=== PATIENT | female | born 1950 | race Caucasian/White ===

== ENCOUNTER → 2016-07-23 09:58 | Outpatient (CLI) | payer MEDICAID ==
[2016-07-23 12:22] LABS: ERYTHROCYTE SEDIMENTATION RATE 22 mm/hr (0-30)
[2016-07-26 14:08] LABS: HEXAGONAL PHASE PHOS 4 sec (0-11); LUPUS - INTERPRETATION Comment: (()); LUPUS - THROMBIN TIME 15.3 sec (0.0-20.9); LUPUS - dRVVT 49.9 sec (0.0-44.0); PTT-LA 43.7 sec (0.0-40.6); PTT-LA INCUB MIX 41.7 sec (0.0-40.6); PTT-LA MIX 38.8 sec (0.0-40.6)
== END | disposition home or self-care (01) ==
LOC: D.LAB 09:58
PROVIDERS: Orthopaedic Surgery
DX: M25.50 Pain in unspecified joint (principal)

== ENCOUNTER → 2016-08-06 09:47 | Outpatient (CLI) | payer MEDICAID ==
[2016-08-07 10:19] LABS: ANA REFLEX - ANTICHROMATIN ABS <0.2 AI (0.0-0.9); ANA REFLEX - CENTROMERE B ABS <0.2 AI (0.0-0.9); ANA REFLEX - DBL STRANDED DNA <1 IU/mL (0-9); ANA REFLEX - DIRECT Positive (Negative); ANA REFLEX - JO-1 AB <0.2 AI (0.0-0.9); ANA REFLEX - RNP ANTIBODIES 2.2 AI (0.0-0.9); ANA REFLEX - SCL-70 <0.2 AI (0.0-0.9); ANA REFLEX - SJOGRENS AB SSA <0.2 AI (0.0-0.9); ANA REFLEX - SJOGRENS AB SSB <0.2 AI (0.0-0.9); ANA REFLEX - SMITH AB <0.2 AI (0.0-0.9)
== END | disposition home or self-care (01) ==
LOC: D.LAB 09:47
PROVIDERS: Orthopaedic Surgery
DX: M25.50 Pain in unspecified joint (principal)

== ENCOUNTER 2017-06-07 10:56 | Outpatient (CLI) | payer MEDICAID ==
[~2017-06-07] VITALS: Ht 162.6 cm; Wt 90.9 kg
--- NOTE | ~2017-06-07 | HEMODYNAMI ---
PATIENT:SARAY TRAORE MEDICAL RECORD: [id number] : 54 LOCATION:DRINA ADMISSION DATE: 06/07/17 Generatedon:06/07/201713:37 Patient name: SARAY TRAORE Patient #: [id number] SSN: DO B: 1950 Date of study: 06/07/2017 Page: Of Hemodynamic Procedure Report Patient Data Patient Demographics Procedure consent was obtained First Name: SARAY Gender: Female Last Name: LEÓN : 1950 [facility] Initial: HAILEY Age: 66 year(s) Patient #: [id number] Race: Unknown Additional ID: [id number] Contact details [address]: [address] [place] [address] State: [place] City: [place] Zip code: [address] Admission Admission Data Admission Date: 06/07/2017 Admission Time: 10:56 Lab Results Lab Result Date: 06/07/2017 Lab Result Time: 0:00 Biochemistry Name Units Result Min Max BUN mg/dl 21 --(----)-* 7 18 Creatinine mg/dl 0.7 --(*---)-- 0.6 1.3 CBC Name Units Result Min Max Hemoglobin g/dl 14 --(*---)-- 13.5 17.5 Procedure Procedure Types Cath Procedure Diagnostic Procedure [facility] w/Coronaries Miscellaneous Procedures Moderate Sedation up to 30 minutes Procedure Description Procedure Date Procedure Date: 06/07/2017 Procedure Start Time: 13:22 Procedure End Time: 13:34 Procedure Staff Name Function Asif Nguyen MD Performing Physician Melani Ornelas RT Monitor Marla Hinds RT Scrub Natanael Erickson RN Nurse Lashon Valadez RN Nurse Procedure Data Cath Procedure Fluoroscopy Diagnostic fluoroscopy Total fluoroscopy Time: 4.6 time: 4.6 min min Diagnostic fluoroscopy Total fluoroscopy dose: 796 dose: 796 mGy mGy Contrast Material Contrast Material Type Amount (ml) Isovue 300 33 Entry Location Entry Primary Successful Side Size Upsize Upsize Entry Closure Tyler ccessful Closure Location (Fr) 1 (Fr) 2 (Fr) Remarks Device Remarks Radial Right 6 Fr Mechanical artery Short Compression Estimated blood loss: 5 ml Diagnostic catheters Device Type Used For End Catheter Placement DIAGNOSTIC Shorter 110cm 5 Multi-vessel Fr catheter ([id number]) Angiography DIAGNOSTIC Pigtail 5Fr LV Angiography catheter ([id number]) Procedure Complications No complications Procedure Medications Medication Administration Route Dosage 0.9% NaCl I.V. ml/hr Oxygen NC 2 l/min Lidocaine 2% added to field 20 Heparin Flush Bag added to field 2 bags (1000units/500ml NS) Radial Cocktail added to field 1 syringe (Verapomil 2mg/Nitro 400mcg/Heparin 1500units) Versed I.V. 1 mg Fentanyl I.V. 50 mcg Fentanyl I.V. 50 mcg Versed I.V. 1 mg Hemodynamics Rest HGB: 14 (g/dl) Heart Rate: 56 (bpm) Snapshots Pre Cath Intra NCS Post Cath Vital Signs Time Heart Resp SPO2 etCO2 NIBP (mmHg) Rhythm Pain Sedation Rate (ipm) (%) (mmHg) Status Level (bpm) 13:04:05 55 14 100 34.3 169/80(131) NSR 0 (11) 10(A) , No pain 13:09:04 57 18 99 29.8 Measuring NSR 0 (11) 10(A) , No pain 13:09:31 54 15 100 31.3 166/83(110) NSR 0 (11) 10(A) , No pain 13:13:57 56 18 100 38 158/78(110) NSR 0 (11) 10(A) , No pain 13:18:15 52 16 100 37.3 146/82(130) NSR 0 (11) 9(A) , No pain 13:22:33 56 18 99 36.5 148/74(111) NSR 0 (11) 9(A) , No pain 13:26:37 53 15 97 33.6 122/80(95) NSR 0 (11) 9(A) , No pain 13:30:49 60 16 97 35 130/68(114) NSR 0 (11) 10(A) , No pain 13:34:56 56 9 99 37.2 131/72(117) NSR 0 (11) 10(A) , No pain Medications Time Medication Route Dose Verified Delivered Reason Notes Effectiveness by by 13:03:03 0.9% NaCl I.V. ml/hr Asif Oates used for [facility] Francisco Valadez RN procedure 13:03:25 Oxygen NC 2 l/min Asif Oates Per [facility] Francisco Valadez RN physician 13:03:36 Lidocaine 2% added 20ml Asif Gold for local to vial [facility] anesthetic field MD PINON 13:03:50 Heparin Flush added 2 bags Asif Gold used for Bag to [facility] procedure (1000units/500ml field MD PINON NS) 13:04:06 Radial Cocktail added 1 Asif Gold for (Verapomil to syringe [facility] vasodilation 2mg/Nitro field MD PINON 400mcg/Heparin 1500units) 13:14:53 Versed I.V. 1 mg Asif Oates for sedation [facility] Francisco Valadez RN, MD 13:15:01 Fentanyl I.V. 50 mcg Asif Oates for sedation [facility] Francisco Valadez RN, MD 13:20:01 Fentanyl I.V. 50 mcg Asif Oates for sedation [facility] Francisco Valadez RN, MD 13:20:08 Versed I.V. 1 mg Asif Oates for sedation [facility] Francisco Valadez RN, MD Procedure Log Time Note 12:48:20 Diagnostic Cath Status : Elective 12:48:50 Marla Hinds RT(R) sent for patient. Start room use. 12:48:51 Time tracking: Regular hours 12:48:55 Plan of Care:Hemodynamics will remain stable., Cardiac rhythm will remain stable., Comfort level will be maintained., Respiratory function will remain adequate., Patient/ family verbilizes understanding of procedure., Procedure tolerated without complication., Recovers from procedure without complications.. 12:57:13 Patient received from Pre/Post Procedure Room to [facility] 2 Alert and oriented. Tansferred to table in Supine position. 12:57:14 Warm blankets applied, and divina hugger turned on for patient comfort. 12:57:15 Correct patient and procedure confirmed by team. 12:57:16 Signed procedure consent form obtained from patient. 12:57:17 ECG and BP/O2 sat monitors applied to patient. 13:02:52 Vital chart was started 13:03:03 0.9% NaCl ml/hr I.V. was administered by Lashon Valadez RN; used for procedure; 13:03:25 Oxygen 2 l/min NC was administered by Lashon Valadez RN; Per physician; 13:03:36 Lidocaine 2% 20ml vial added to field was administered by Asif Nguyen MD; for local anesthetic; 13:03:50 Heparin Flush Bag (1000units/500ml NS) 2 bags added to field was administered by Asif Nguyen MD; used for procedure; 13:04:06 Radial Cocktail (Verapomil 2mg/Nitro 400mcg/Heparin 1500units) 1 syringe added to field was administered by Asif Nguyen MD; for vasodilation; 13:07:02 Baseline sample Acquired. 13:07:05 Rhythm: sinus rhythm 13:07:06 Full Disclosure recording started 13:07:11 H&P Date Dictated: 06/07/2017 H&P Addendum completed by physician on day of procedure. (MUST COMPLETE FOR ALL OUTPATIENTS), New H&P dictated by physician.. 13:07:13 Pre-procedure instructions explained to patient. 13:07:14 Pre-op teaching completed and patient verbalized understanding. 13:07:15 Family in waiting room. 13:07:17 Patient NPO since Midnight. 13:07:27 Is the patient allergic to Iodine/contrast media? No. 13:07:28 Was the patient premedicated? No 13:07:31 Is patient on blood thinner?No 13:07:32 Patient diabetic? Yes. 13:07:33 If diabetic: On Metformin? No 13:07:38 Previous problem with sedation/anesthesia? No ? 13:07:40 Snore? Yes 13:07:40 Sleep apnea? No 13:07:41 Deviated septum? No 13:07:42 Opens mouth fully? Yes 13:07:43 Sticks out tongue? Yes 13:07:48 Airway obstruction? No ? 13:07:56 Dentures? No loose teeth 13:08:01 Pre procedure: right dorsailis pedis pulse 2+ Normal; easily identifiable; not easily obliterated 13:08:03 Pre procedure: left dorsailis pedis pulse 2+ Normal; easily identifiable; not easily obliterated 13:08:05 Patient pain scale 0/10 ?. 13:08:12 IV patent on arrival in left hand with 0.9% NaCl at KVO. 13:08:53 Lab Result : BUN 21 mg/dl 13::53 Lab Result : Creatinine 0.7 mg/dl 13::53 Lab Result : Hemoglobin 14 g/dl 13:08:56 Lab results completed and on chart. 13:09:28 Right Radial & Right Groin area was prepped with chlora-prep and draped in sterile fashion 13::30 Alarms reviewed by R. N. 13::31 Sharps counted by scrub and verified by R.N. 13:09:32 Physician arrived 13::33 --------ALL STOP TIME OUT------ 13::33 Final Timeout: patient, procedure, and site verified with staff and physician. All members of the team are in agreement. 13:09:37 Right Radial & Right Groin site verified by team. 13:09:39 Physical assessment completed. ASA score P 2 - A patient with mild systemic disease as per Asif Nguyen MD. 13:09:44 Sedation plan: IV Moderate Sedation Medication:Versed, Fentanyl 13:10:04 Use device set Radial Dx 13:10:05 ACIST Syringe (67931) opened to sterile field. 13:10:06 Medline Cath Pack ([id number]) opened to sterile field. 13:10:08 Bag Decanter (2002S) opened to sterile field. 13:10:09 SHEATH 6FR Slender ([id number]) opened to sterile field. 13:10:10 DIAGNOSTIC WIRE .035 260cm J wire (431639) opened to sterile field. 13:10:11 ACIST Hand Control (88826) opened to sterile field. 13:10:12 ACIST Manifold (84947) opened to sterile field. 13:10:13 Tegaderm 4 x 4 (1626W) opened to sterile field. 13:10:14 MBrace Wrist Support ([id number]) opened to sterile field. 13:10:18 NEEDLE Cook 21G 4cm Radial (R20307) opened to sterile field. 13:10:22 TR BAND Standard ([id number]) opened to sterile field. 13:14:53 Versed 1 mg I.V. was administered by Lashon Valadez RN; for sedation; 13:15:01 Fentanyl 50 mcg I.V. was administered by Lashon Valadez RN; for sedation; 13:19:30 Zero performed for pressure channel P1 13:20:01 Fentanyl 50 mcg I.V. was administered by Lashon Valadez RN; for sedation; 13:20:08 Versed 1 mg I.V. was administered by Lashon Valadez RN; for sedation; 13:22:07 Procedure started. 13:22:26 Local anesthetic to right radial artery with Lidocaine 2% by Asif Nguyen MD.INITIAL ACCESS ONLY 13:23:08 A 6 Fr Short sheath was inserted into the Right Radial artery 13:24:03 A DIAGNOSTIC Shorter 110cm 5 Fr catheter (839108) was advanced over the wire and used for Multi-vessel Angiography. 13:27:05 LCA angiography performed. 13:27:09 Injector settings: Ml/sec: 3, Volume: 6, 13:28:27 RCA angiography performed. 13:28:29 Injector settings: Ml/sec: 3, Volume: 6, 13:30:22 A DIAGNOSTIC Pigtail 5Fr catheter ([id number]) was advanced over the wire and used for LV Angiography. 13:31:42 Catheter removed. 13:32:05 Sheath removed intact; hemostasis achieved with Mechanical Compression to the Right Radial artery. 13:32:07 Procedure ended.(Physican Out) 13:32:39 Fluoroscopy time 04.60 minutes. 13:32:45 Fluoroscopy dose: 796 mGy 13:32:45 Flurop Dose total: 796 13:32:51 Contrast amount:Isovue 300 33ml. 13:32:53 Sharps counted by scrub and verified by R.N. 13:33:33 TR band inflated with 10cc of air. 13:33:35 Insertion/operative site no bleeding no hematoma. 13:33:48 Post right radial artery:stable 13:33:50 Post Procedure Pulses reassessed and unchanged 13:33:54 Post procedure rhythm: unchanged. 13:33:56 Estimated blood loss: 5 ml 13:33:58 Post procedure instruction explained to patient.Patient verbalizes understanding. 13:33:58 Patient needs reinforcement of post procedure teaching. 13:34:10 Procedure type changed to Cath procedure, Diagnostic procedure, LHC, LHC w/Coronaries, Miscellaneous Procedures, Moderate Sedation up to 30 minutes 13:34:12 Procedure and supply charges have been captured, reviewed, submitted and are correct. 13:34:16 Procedure Complication : No complications 13:34:19 Vital chart was stopped 13:34:19 See physician's report for complete and final results. 13:34:23 Report given to Pre/Post Procedure Room. 13:34:26 Patient transfered to Pre/Post Procedure Room with Stretcher. 13:34:28 Procedure ended. 13:34:28 Full Disclosure recording stopped 13:34:31 End room use (Document Last) Device Usage Item Name Manufacture Quantity Catalog Hospital Part Current Minima l Lot# / Number Charge Number Stock Stock Serial# Code ACIST Acist 1 44734 [id number] 527417 220058 20 Syringe Medical (36294) Systems Inc Medline Cath Cardinal 1 [id number] 972023 78051 696394 5 Pack Health ([id number]) Bag Decanter Microtek 1 2001S 407775 63283 960978 5 (2001S) Medical Inc. SHEATH 6FR Terumo 1 [id number] 889526 905299 529644 40 Slender ([id number]) DIAGNOSTIC St Larry 1 810723 162229 832199 254073 30 WIRE .035 260cm J wire (644780) ACIST Hand Acist 1 21469 539208 860200 533728 5 Control Medical (32721) Systems Inc ACIST Acist 1 57897 894327 423657 155687 5 Manifold Medical (26675) Systems Inc Tegaderm 4 x 3M 1 1626W 522087 106432 373615 5 4 (1626W) MBrace Wrist Advanced 1 140-0250-00 057443 31323 414699 5 Support Vascular ([id number]) Dynamics NEEDLE [employer] Medical 1 I73265 314042 871373 094176 5 21G 4cm Radial (A34808) TR BAND Terumo 1 [id number] 856524 780267 487482 40 Standard ([id number]) DIAGNOSTIC Terumo 1 40-5013 397965 192363 426808 5 Shorter 110cm 5 Fr catheter (146679) DIAGNOSTIC Cardinal 1 [id number] 325252 415314 402921 5 Pigtail 5Fr Health catheter (525461X) Signature Audit Kosse Stage Time Signature Unsigned Intra-Procedure 06/07/2017 Melani Ornelas 1:37:35 PM RT(R) Signatures Monitor : Melani Ornelas RT Signature : Date : Time : [place] [id number] [facility] [place] [address]
[2017-06-07 12:03] VITALS: BP 139/73; Ht 162.6 cm; Wt 90.9 kg
[2017-06-07 12:17] LABS: BASOPHILS 0.5 % (0-2); EOSINOPHILS 3.5 % (0-7); HEMATOCRIT 40.6 % (36.0-48.0); IMMATURE GRANULOCYTES 0.3 % (0-5); LYMPHOCYTES 26.5 % (15-50); MCH 29.9 pg (26.0-34.0); MCHC 34.5 g/dL (31.0-37.0); MCV 86.8 fL (80.0-100.0); MEAN PLATELET VOLUME 10.2 fL (7.4-10.4); NEUTROPHILS 61.2 % (40-80); PLATELET COUNT 231 10x3/uL (130-400); RBC 4.68 10x6/uL (4.00-5.40); RDW 13.3 % (11.5-14.5); WBC 9.5 10x3/uL (4.8-10.8)
[2017-06-07 12:37] LABS: CALC OSMOLALITY 281 mosm/kg (275-300); CALCIUM 9.3 mg/dL (8.5-10.1); CARBON DIOXIDE 27.8 mmol/L (21.0-32.0); CHLORIDE - SERUM 103 mmol/L (98-107); CREATININE - SERUM 0.7 mg/dL (0.6-1.3); GLUCOSE 101 mg/dL (74-106); POTASSIUM - SERUM 3.6 mmol/L (3.5-5.1); SODIUM 140 mmol/L (136-145); UREA NITROGEN 21 mg/dL (7-18); eGFR NON AFRICAN AMERICAN 89 mL/min (90-120)
[2017-06-07] MEDS ORDERED: ZOCOR40 MG PO (12:39)
[2017-06-07] MEDS ORDERED: K-TAB10 MEQ PO (12:40)
[2017-06-07] MEDS ORDERED: COZAAR100 MG PO (12:40)
[2017-06-07] MEDS ORDERED: METOPROLOL TAR100 M1 PO (12:40)
[2017-06-07] MEDS ORDERED: ZOLOFT50 MG PO (12:41)
[2017-06-07] MEDS ORDERED: SYNTHROID112 MCG PO (12:41)
[2017-06-07] MEDS ORDERED: HYDROCHLOROTH12.5 M1 PO (12:41)
[2017-06-07] MEDS ORDERED: BUSPAR5 MG PO (12:42)
[2017-06-07] MEDS ORDERED: ZANAFLEX4 MG PO (12:42)
[2017-06-07] MEDS ORDERED: ULTRAM50 MG PO (12:42)
[2017-06-07] MEDS ORDERED: MAGNESIUM OXID250 MG PO (12:43)
[2017-06-07] MEDS ORDERED: VITAMIN D31000 UNIT PO (12:43)
--- NOTE | 2017-06-07 13:55 | NUR ---
1345 RECEIVED PT FROM MERCHANDISE CLERK. PT IS ALERT, RR EVEN AND UNLABORED ON ROOM AIR. TR BAND TO RIGHT WRIST IS CDI, AREA IS FREE FROM BLEEDING/HEMATOMA. FINGERS WARM, CAP REFILL IS BRISK, PT DENIES ANY N/V DEFICIT TO HAND. WRIST IMMOBILIZER IN PLACE, INSTRUCTED PT TO AVOID BENDING/ FLEXING WRIST AND VERBALIZES UNDERSTANDING. NSR WITH RATE OF 66. BP IS 130/69. SISTER AT BEDSIDE, CALL LIGHT IN REACH.
--- NOTE | 2017-06-07 13:57 | NUR ---
SANDWICH AND PO FLUIDS SERVED, PT DENIES ANY C/O. NO BLEEDING AT CATH SITE. SISTER AT BEDSIDE, CALL LIGHT IN REACH.
--- NOTE | 2017-06-07 14:26 | NUR ---
VSS WITH CHEST PAIN DENIED. SITTING WITH HOB UP 45 DEGREES TALKING TO FAMILY AT BEDSIDE NEEDS DENIED
--- NOTE | 2017-06-07 14:53 | NUR ---
TR BAND REMAINS TO R/WRIST CDI NO BLEEDING NO HEMATOMA NOTED. VSS WITH CHEST PAIN DENIED FAMILY AT BEDSIDE
--- NOTE | 2017-06-07 15:09 | NUR ---
4 CC AIR REMOVED FROM TR BAND WITH NO BLEEDING NO HEMATOMA NOTED
--- NOTE | 2017-06-07 15:17 | NUR ---
4 CC AIR REMOVED FROM TR BAND WITH NO BLEEDING NO HEMATOMA NOTED. PIV REMOVED WITH DRESSING APPLIED. PATIENT UP TO GET DRESSED FOR DISCHARGE HOME CHEST PAIN DENIED
--- NOTE | 2017-06-07 15:35 | NUR ---
TR BAND REMOVED WITH DRESSING APPLIED. NO BLEEDING NO HEMATOMA NOTED. CHEST PAIN IS DENIED. VERBAL AND WRITTEN DISCHARGE GONE OVER WITH PATIENT AND FAMILY. LEFT VIA WC TO PARKING FOR TRANSPORT HOME
--- NOTE | 2017-06-09 13:23 | OP ---
PATIENT NAME: SARAY TRAORE MEDICAL RECORD: [id number] :54 LOCATION:D.CAT ADMISSION DATE: SURGEON: WOLFGANG WYLIE MD DATE OF OPERATION: 06/07/2017 PROCEDURE: Left heart catheterization, selective coronary angiography, right radial approach. CATHETERS: [place] catheter. The procedure was tolerated and the patient returned to trevizo. Sheath removed. TR band was placed. FINDINGS: Left ventriculography in the 30-degree VAZ view not performed. CORONARY ANATOMY: 1. Left main: Left main is free of disease. 2. LAD is free of disease in the diagonal system. 3. Circumflex is free of disease in the marginal system. 4. Right coronary artery: Dominant artery, gives rise to PDA, free of disease. IMPRESSION: Normal LV systolic function via previous nuclear stress testing, echocardiographic study, normal coronary anatomy, and false positive nuclear stress testing. TRANSINT:[id number] Voice Confirmation ID: [id number] DOCUMENT ID: [id number] WOLFGANG WYLIE MD at 1323 CC: [id number] DICTATION DATE: 06/07/17 1339 MOTION PICTURES CARTOONIST: 06/07/17 1408 DEP CLI 06/07/17 [facility] [address] [place] [address]
--- NOTE | 2017-06-09 13:23 | HP ---
PATIENT: SARAY TRAORE MEDICAL RECORD: [id number] ACCOUNT: [id number] LOCATION:OPAL : 54 ADMISSION DATE: 06/07/17 HISTORY AND PHYSICAL EXAMINATION DATE OF SERVICE: 06/07/2017. HISTORY OF PRESENT ILLNESS: A 66-year-old female with a history of diabetes mellitus, hypertension, was initially seen in clinic with anginal symptomatology and underwent noninvasive stress test with Cardiolite stress testing, was found to have possible reversibility in the anterior leads, LV function was normal. She had been taken for outpatient angiography. PAST MEDICAL HISTORY: Includes: 1. History of hypertension. 2. Hyperlipidemia. 3. Diabetes mellitus. MEDICATIONS: Includes gabapentin 100 mg p.o. every day, hydrochlorothiazide 25 every day, Synthroid 112 mcg every day, losartan 100 every day, metoprolol 100 b.i.d., simvastatin 40 every day. PHYSICAL EXAMINATION: GENERAL: Well developed, well nourished female in no acute distress. NECK: No JVD or bruit. HEART: Regular. LUNGS: Lung tucker are clear. ABDOMEN: Soft, nontender. EXTREMITIES: Pulses 2+ with no edema. DIAGNOSTIC DATA: Cardiolite stress testing is abnormal as described above. PLAN: We will plan for diagnostic angiography, intervention based on the above. TRANSINT:[id number] Voice Confirmation ID: [id number] DOCUMENT ID: [id number] WOLFGANG WYLIE MD at 1323 CC: [id number] DICTATION DATE: 06/08/17 0758 AERODYNAMICS PROFESSOR: 06/08/17 0944 [facility] CLI 06/07/17 [place] [id number]
== END 2017-06-07 15:37 | disposition home or self-care (01) ==
LOC: D.CATH 10:56
PROVIDERS: Internal Medicine Interventional Cardiology
DX: R94.39 Abnormal result of other cardiovascular function study (principal); I10 Essential (primary) hypertension; E78.5 Hyperlipidemia, unspecified; E11.9 Type 2 diabetes mellitus without complications; Z01.812 Encounter for preprocedural laboratory examination; Z79.899 Other long term (current) drug therapy

== ENCOUNTER 2018-01-19 15:33 | Emergency (ER) | payer MEDICARE ==
[~2018-01-19] VITALS: Ht 162.6 cm; Wt 95.5 kg
[~2018-01-19 15:33] MED LIST: BUSPAR5 MG PO; COZAAR100 MG PO; HYDROCHLOROTH12.5 M1 PO; K-TAB10 MEQ PO; MAGNESIUM OXID250 MG PO; METOPROLOL TAR100 M1 PO; SYNTHROID112 MCG PO; ULTRAM50 MG PO; VITAMIN D31000 UNIT PO; ZANAFLEX4 MG PO; ZOCOR40 MG PO; ZOLOFT50 MG PO
[2018-01-19 15:50] VITALS: BP 170/85; Ht 162.6 cm; Wt 95.5 kg
[2018-01-19] MEDS ORDERED: VIBRAMYCIN 100100 MG PO (17:06)
== END 2018-01-19 17:13 | disposition home or self-care (01) ==
LOC: D.ER 15:33
DX: S20.469A Insect bite (nonvenomous) of unspecified back wall of thorax, initial encounter (principal); W57.XXXA Bitten or stung by nonvenomous insect and other nonvenomous arthropods, initial encounter; Y93.89 Activity, other specified; Y92.019 Unspecified place in single-family (private) house as the place of occurrence of the external cause; E11.9 Type 2 diabetes mellitus without complications; I10 Essential (primary) hypertension; Z85.828 Personal history of other malignant neoplasm of skin

== ENCOUNTER 2019-05-05 13:46 | Inpatient (IN) | payer MEDICARE ==
[~2019-05-05] VITALS: Ht 162.6 cm; Wt 99.8 kg
[~2019-05-05 13:46] MED LIST changes: +VIBRAMYCIN 100100 MG PO
[2019-05-05 15:30] VITALS: BP 185/95
--- NOTE | 2019-05-05 15:34 | NUR ---
C-COLLAR OKAYED TO REMOVE; REMOVED.
[2019-05-05 16:04] LABS: BASOPHILS 0.2 % (0-2); EOSINOPHILS 0.6 % (0-7); HEMATOCRIT 40.3 % (36.0-48.0); HEMOGLOBIN 13.6 g/dL (12-16); IMMATURE GRANULOCYTES 0.6 % (0-5); LYMPHOCYTES 10.7 % (15-50); MCH 30.2 pg (26.0-34.0); MCHC 33.7 g/dL (31.0-37.0); MCV 89.6 fL (80.0-100.0); MEAN PLATELET VOLUME 10.1 fL (7.4-10.4); MONOCYTES 6.3 % (2-11); NEUTROPHILS 81.6 % (40-80); PLATELET COUNT 227 10x3/uL (130-400); RDW 13.5 % (11.5-14.5); WBC 13.2 10x3/uL (4.8-10.8)
[2019-05-05 16:11] LABS: CALC OSMOLALITY 291 mosm/kg (275-300); CALCIUM 8.9 mg/dL (8.5-10.1); CARBON DIOXIDE 26.7 mmol/L (21.0-32.0); CHLORIDE - SERUM 107 mmol/L (98-107); CREATININE - SERUM 0.8 mg/dL (0.6-1.3); GLUCOSE 128 mg/dL (74-106); SODIUM 145 mmol/L (136-145); UREA NITROGEN 16 mg/dL (7-18); eGFR NON AFRICAN AMERICAN 76 mL/min (90-120)
[2019-05-05 16:17] LABS: ALBUMIN 3.5 g/dL (3.4-5.0); ALKALINE PHOSPHATASE 75 U/L (46-116); ALT (SGPT) 38 U/L (10-68); BILIRUBIN - TOTAL 0.45 mg/dL (0.2-1.3); PROTEIN - SERUM 7.2 g/dL (6.4-8.2)
--- NOTE | 2019-05-05 16:30 | NUR ---
PATIENT AWAKE AND ALERT; COLOR WNL FOR RACE; RESPIRATIONS EVEN AND UNLABORED; NO NEEDS NOTED; UPDATED ON PLAN OF CARE AND DELAYS IN CARE; WILL CONTINUE TO MONITOR.
--- NOTE | 2019-05-05 17:30 | NUR ---
PATIENT AWAKE AND ALERT; UPDATED ON PLAN OF CARE AND DELAYS IN CARE; WILL CONTINUE TO MONITOR.
[2019-05-05 18:29] VITALS: BP 144/92
--- NOTE | 2019-05-05 19:01 | NUR ---
PATIENT TO ROOM. ASSISTED TO BED X 2 ASSIST. ORIENTED TO ROOM AND CALL LIGHT. CALL LIGHT WITHIN REACH.
[2019-05-05 19:53] VITALS: BP 148/72
[2019-05-05] MEDS ORDERED: ZOLOFT50 MG PO (19:57)
[2019-05-05] MEDS ORDERED: ZANAFLEX4 MG PO (19:59)
[2019-05-05] MEDS ORDERED: CRESTOR20 MG PO (20:00)
[2019-05-05] MEDS ORDERED: ALEVE220 MG PO (20:02)
--- NOTE | 2019-05-05 20:05 | NUR ---
PT ALERT & ORIENTED. RATES BACK PAIN 10/10. INIATED STONE LATHE OPERATOR AND INSTRUCTED PT ON USE. REVIEWED HOME MEDS AND HISTORY. ASSESSMENT COMPLETE PER FLOW-SHEET. PT VOIDED ON BEDPAN. SENT SPECIMEN TO LAB. TELEMETRY ON PT. NO OTHER NEEDS. WILL CONTINUE TO MONITOR.
[2019-05-05 20:42] LABS: APPEARANCE CLOUDY (CLEAR); BILIRUBIN NEGATIVE (NEGATIVE); COLOR DK YELLOW (YELLOW); GLUCOSE NEGATIVE (NEGATIVE); KETONE NEGATIVE (NEGATIVE); NITRITE NEGATIVE (NEGATIVE); PROTEIN TRACE mg/dL (NEGATIVE); SPECIFIC GRAVITY 1.015 (1.005-1.020); UROBILINOGEN NORMAL (NORMAL)
[2019-05-05 20:43] LABS: BACTERIA FEW /hpf (NEGATIVE); RED CELLS - URINE 0-5 /hpf (0-5); WHITE CELLS - URINE 0-5 /hpf (NEGATIVE)
[2019-05-05 20:44] LABS: MUCUS <1+ /lpf (NONE SEEN)
[2019-05-05 22:58] VITALS: BP 148/72; BMI 37.8
[2019-05-06] VITALS: BP 134/69
[2019-05-06 04:00] VITALS: BP 141/66
[2019-05-06 07:10] LABS: BASOPHILS 0.2 % (0-2); EOSINOPHILS 1.3 % (0-7); HEMATOCRIT 36.6 % (36.0-48.0); HEMOGLOBIN 12.1 g/dL (12-16); IMMATURE GRANULOCYTES 0.2 % (0-5); LYMPHOCYTES 16.3 % (15-50); MCH 30.3 pg (26.0-34.0); MCHC 33.1 g/dL (31.0-37.0); MCV 91.5 fL (80.0-100.0); MEAN PLATELET VOLUME 9.9 fL (7.4-10.4); MONOCYTES 7.4 % (2-11); NEUTROPHILS 74.6 % (40-80); PLATELET COUNT 213 10x3/uL (130-400); RDW 14.1 % (11.5-14.5); WBC 10.2 10x3/uL (4.8-10.8)
[2019-05-06 07:34] LABS: ALBUMIN 3.3 g/dL (3.4-5.0); ALKALINE PHOSPHATASE 67 U/L (46-116); ALT (SGPT) 34 U/L (10-68); BILIRUBIN - TOTAL 0.35 mg/dL (0.2-1.3); CALC OSMOLALITY 291 mosm/kg (275-300); CALCIUM 7.7 mg/dL (8.5-10.1); CARBON DIOXIDE 29.3 mmol/L (21.0-32.0); CHLORIDE - SERUM 108 mmol/L (98-107); CREATININE - SERUM 0.8 mg/dL (0.6-1.3); GLUCOSE 136 mg/dL (74-106); POTASSIUM - SERUM 3.5 mmol/L (3.5-5.1); PROTEIN - SERUM 6.3 g/dL (6.4-8.2); SODIUM 145 mmol/L (136-145); UREA NITROGEN 15 mg/dL (7-18); eGFR NON AFRICAN AMERICAN 76 mL/min (90-120)
[2019-05-06 08:12] VITALS: BP 135/61
--- NOTE | 2019-05-06 09:22 | NUR ---
PT LYING IN BED ATTEMPTING TO EAT AND DRINK PT TO LAY FLAT ON BACK DUE TO PAIN AND ACCIDENT, ASSISTEED PT ON BEDPAN, NO OTHER NEEDS VOICED, CONTINUE WITH PLAN OF CARE
--- NOTE | 2019-05-06 11:01 | NUR ---
I have reviewed this patient and I concur with the Shift Assessment completed by the Licensed Practical Nurse today this shift.
--- NOTE | 2019-05-06 13:30 | NUR ---
RESITED PT IV TO LEFT HAND APPLIED ICE TO BACK PT STATES SHE FEELS MUCH BETTER CONTINUE WITH PLAN OF CARE
[2019-05-06 13:33] VITALS: BP 174/78
--- NOTE | 2019-05-06 15:08 | NUR ---
PT STATE SFELLS DIZZY AND SOB, O2 IS AT 97 HEART RATE IS AT 60 WILL CONTINUE TO MONITOR. NO WHEEZING HEARD NO SWELLING NO DIFFERENT MEDS, CHANGED SUPERINTENDENT MENAGERIE BEFORE INCIDENT OCCURED, PT ON SAME MEDICATION, WILL MONITOR CLOSELY
[2019-05-06 16:23] VITALS: BP 112/55
[2019-05-06 19:49] VITALS: BP 128/84
[2019-05-07] VITALS: BP 148/67
[2019-05-07 04:00] VITALS: BP 140/70
[2019-05-07 06:15] LABS: BASOPHILS 0.3 % (0-2); EOSINOPHILS 1.7 % (0-7); HEMATOCRIT 36.3 % (36.0-48.0); HEMOGLOBIN 11.7 g/dL (12-16); IMMATURE GRANULOCYTES 0.2 % (0-5); LYMPHOCYTES 11.1 % (15-50); MCHC 32.2 g/dL (31.0-37.0); MCV 93.1 fL (80.0-100.0); MEAN PLATELET VOLUME 10.7 fL (7.4-10.4); MONOCYTES 9.3 % (2-11); NEUTROPHILS 77.4 % (40-80); PLATELET COUNT 211 10x3/uL (130-400); RDW 14.5 % (11.5-14.5); WBC 11.9 10x3/uL (4.8-10.8)
[2019-05-07 06:54] LABS: ALBUMIN 3.4 g/dL (3.4-5.0); ANION GAP 12.9 mmol/L (8-16); BILIRUBIN - TOTAL 0.3 mg/dL (0.2-1.3); CALCIUM 8.2 mg/dL (8.5-10.1); CARBON DIOXIDE 29.8 mmol/L (21.0-32.0); CREATININE - SERUM 0.9 mg/dL (0.6-1.3); POTASSIUM - SERUM 3.7 mmol/L (3.5-5.1); PROTEIN - SERUM 6.5 g/dL (6.4-8.2)
--- NOTE | 2019-05-07 08:00 | NUR ---
PATIENT IN BED WITH IV INTACT. NO COMPLAINTS OR SIGNS OF DISTRESS. TLSO BRACE ON. CALL LIGHT WITHIN REACH.
[2019-05-07 08:09] VITALS: BP 123/62
--- NOTE | 2019-05-07 11:38 | NUR ---
PATIENT AMBULATED WITH PT 10 FT
[2019-05-07 12:28] VITALS: BP 121/60
[2019-05-07 16:54] VITALS: BP 116/45
--- NOTE | 2019-05-07 18:43 | NUR ---
PATIENT IN BED WITH IV INTACT. BACK BRACE ON. EATING DINNER AT THIS TIME. NO COMPLAINTS. CALL LIGHT WITHIN REACH.
[2019-05-07 20:47] VITALS: BP 124/60
[2019-05-08 00:58] VITALS: BP 120/60
--- NOTE | 2019-05-08 03:00 | NUR ---
PT INCONTINENT OF URINE. CLEANED PT AND CHANGED BED. OXYGEN SAT 79. PUT OXYGEN ON AT 2.5L TO GET SAT UP TO 88. MEAD RT TO ASSESS. JAMIE RT PUT PT ON 4L/NC, SAT IN 93% AND WILL REASSESS.
[2019-05-08 04:00] VITALS: BP 143/71
[2019-05-08 07:41] LABS: BASOPHILS 0.1 % (0-2); EOSINOPHILS 0.8 % (0-7); HEMATOCRIT 34.4 % (36.0-48.0); HEMOGLOBIN 11.3 g/dL (12-16); IMMATURE GRANULOCYTES 0.4 % (0-5); LYMPHOCYTES 6.7 % (15-50); MCH 29.8 pg (26.0-34.0); MCHC 32.8 g/dL (31.0-37.0); MONOCYTES 8.3 % (2-11); NEUTROPHILS 83.7 % (40-80); PLATELET COUNT 179 10x3/uL (130-400); RBC 3.79 10x6/uL (4.00-5.40)
[2019-05-08 07:52] LABS: ALBUMIN 3.2 g/dL (3.4-5.0); ALKALINE PHOSPHATASE 73 U/L (46-116); BILIRUBIN - TOTAL 0.57 mg/dL (0.2-1.3); CALC OSMOLALITY 287 mosm/kg (275-300); CALCIUM 8.3 mg/dL (8.5-10.1); CARBON DIOXIDE 29.7 mmol/L (21.0-32.0); CHLORIDE - SERUM 103 mmol/L (98-107); CREATININE - SERUM 0.7 mg/dL (0.6-1.3); GLUCOSE 144 mg/dL (74-106); PROTEIN - SERUM 6.9 g/dL (6.4-8.2); SODIUM 142 mmol/L (136-145); UREA NITROGEN 17 mg/dL (7-18); eGFR NON AFRICAN AMERICAN 89 mL/min (90-120)
[2019-05-08 07:53] LABS: ALT (SGPT) 50 U/L (10-68)
[2019-05-08 08:01] LABS: POTASSIUM - SERUM 2.8 mmol/L (3.5-5.1)
[2019-05-08 08:11] LABS: MCV 90.8 fL (80.0-100.0); WBC 15.8 10x3/uL (4.8-10.8)
--- NOTE | 2019-05-08 08:45 | NUR ---
ALERT AND ORIENTED. LUNGS CLEAR BILATERALLY IN ALL MONTIEL. HEART SOUNDS S1 AND S2 HEARD IN ALL MONTIEL. BOWEL SOUNDS ACTIVE X 4. SKIN INTACT WITHOUT REDNESS. IV TO RIGHT HAND PATENT WITHOUT REDNESS. DENIES NEEDS. BED LOW. CALL MCNEAL AND PERSONAL ITEMS IN REACH. WILL CONTINUE TO MONITOR.
[2019-05-08 08:51] VITALS: BP 156/82
[2019-05-08 12:30] VITALS: BP 154/83
[2019-05-08 12:48] LABS: ERYTHROCYTE SEDIMENTATION RATE 50 mm/hr (0-30)
--- NOTE | 2019-05-08 13:25 | NUR ---
RESTING IN BED. DENIES NEEDS. WILL CONTINUE TO MONITOR.
[2019-05-08 14:55] LABS: MAGNESIUM - SERUM 1.8 mg/dL (1.8-2.4)
[2019-05-08 16:21] VITALS: BP 170/78
--- NOTE | 2019-05-08 17:36 | NUR ---
RESTING IN BED. DENIES NEEDS. WILL CONTINUE TO MONITOR.
--- NOTE | 2019-05-08 17:51 | NUR ---
PATIENT'S ROLL PANNER DC ON SEP FROM PHARMACY. DR CANTOR SAID OK TO RENEW.
[2019-05-08 19:30] VITALS: BP 155/69
--- NOTE | 2019-05-08 22:00 | NUR ---
PT REPORTS INCONTINENT OF URINE EPISODE. REPORTS URGENCY. REFUSING BATH THAT SHE REQUESTED EARLIER. DENIES NEEDS AT THIS TIME.
--- NOTE | 2019-05-08 23:31 | NUR ---
A&O X 4. REPORTS SHE IS ABLE TO AMBULATE W/O DIFFICULTY, BUT REPORTS 10/10 PAIN CONSTANTLY. PT ALSO STATES SHE WOULD LIKE TO RECEIVE A BATH AT SOME POINT THIS SHIFT. DENIES FURTHER NEEDS, WILL CONTINUE TO MONITOR.
[2019-05-09 00:30] VITALS: BP 133/59
--- NOTE | 2019-05-09 03:37 | NUR ---
I have reviewed this patient and I concur with the Shift Assessment completed by the Licensed Practical Nurse today this shift.
[2019-05-09 04:30] VITALS: BP 140/62
[2019-05-09 08:14] LABS: ALBUMIN 3.1 g/dL (3.4-5.0); ALKALINE PHOSPHATASE 97 U/L (46-116); BILIRUBIN - TOTAL 0.71 mg/dL (0.2-1.3); CALCIUM 8.3 mg/dL (8.5-10.1); CARBON DIOXIDE 34.2 mmol/L (21.0-32.0); CHLORIDE - SERUM 102 mmol/L (98-107); CREATININE - SERUM 0.7 mg/dL (0.6-1.3); GLUCOSE 147 mg/dL (74-106); PROTEIN - SERUM 7.3 g/dL (6.4-8.2); SODIUM 142 mmol/L (136-145); eGFR NON AFRICAN AMERICAN 89 mL/min (90-120)
[2019-05-09 08:22] LABS: BASOPHILS 0.2 % (0-2); EOSINOPHILS 2.1 % (0-7); HEMATOCRIT 35.8 % (36.0-48.0); HEMOGLOBIN 11.6 g/dL (12-16); IMMATURE GRANULOCYTES 0.4 % (0-5); LYMPHOCYTES 7.1 % (15-50); MCH 29.6 pg (26.0-34.0); MCHC 32.4 g/dL (31.0-37.0); MCV 91.3 fL (80.0-100.0); MEAN PLATELET VOLUME 10.3 fL (7.4-10.4); MONOCYTES 8.2 % (2-11); RBC 3.92 10x6/uL (4.00-5.40); RDW 14.1 % (11.5-14.5); WBC 13.5 10x3/uL (4.8-10.8)
[2019-05-09 08:23] LABS: ALT (SGPT) 78 U/L (10-68); CALC OSMOLALITY 285 mosm/kg (275-300); UREA NITROGEN 12 mg/dL (7-18)
[2019-05-09 08:25] LABS: POTASSIUM - SERUM 2.8 mmol/L (3.5-5.1)
[2019-05-09 08:26] LABS: PLATELET COUNT 217 10x3/uL (130-400)
[2019-05-09 08:27] VITALS: BP 148/70
--- NOTE | 2019-05-09 09:00 | NUR ---
ASSESSMENT PER FLOW SHEET. PT IS WITHOUT DISTRESS.CALL LIGHT IN REACH.
--- NOTE | 2019-05-09 10:00 | NUR ---
IV PULLED OUT WITH CATH TIP INTACT FROM LEFT FOREARM. IV RESITED TO LEFT FOREARM USING ASEPTIC TECH,X1 STICK 22G.
[2019-05-09 12:18] VITALS: BP 139/70
[2019-05-09 16:03] LABS: MAGNESIUM - SERUM 1.8 mg/dL (1.8-2.4)
[2019-05-09 16:05] LABS: POTASSIUM - SERUM 2.7 mmol/L (3.5-5.1)
[2019-05-09 17:14] VITALS: BP 144/66
--- NOTE | 2019-05-09 19:30 | NUR ---
REMAINS WITHOUT CHANGE.CONT PLAN OF CARE
[2019-05-09 20:24] VITALS: BP 119/71
--- NOTE | 2019-05-09 21:15 | NUR ---
LYING IN BED. ALERT AND ORIENTED X4. RESP SHALLOW, NONLABORED. O2 @ 3L/NC. ENCOURAGED USE OF I.S AND INSTRUCTED. PT VERBALIZED UNDERSTANDING. RATES PAIN IN BACK 9. TRANSPORT AIRCREWMAN MORPHINE IN USE. MEDICATED WITH PERCOCET REQUESTED. NS @ 30 ML/HR INFUSING IN RT FOREARM WITHOUT DIFF. AMB WITH WALKER. GAIT IS UNSTEADY. TELEMETRY SHOWS SR WITH RATE OF 74. 1ST KCL RIDER STILL INFUSING DUE TO PT CRYING AND C/O BURNING AT IV SITE. SR ELEVATED X2. CL IN REACH.
--- NOTE | 2019-05-10 00:05 | NUR ---
2ND [facility] RIDER FINISHED INFUSING. WILL RECHECK WITH AM LABS. PT PLAYING ON CELL PHONE. NO DISTRESS. CL IN REACH.
[2019-05-10 01:07] VITALS: BP 160/73
[2019-05-10 05:09] VITALS: BP 156/82
[2019-05-10 06:55] LABS: BASOPHILS 0.3 % (0-2); EOSINOPHILS 3.6 % (0-7); HEMATOCRIT 34.4 % (36.0-48.0); HEMOGLOBIN 11.2 g/dL (12-16); IMMATURE GRANULOCYTES 0.6 % (0-5); MCH 29.9 pg (26.0-34.0); MCHC 32.6 g/dL (31.0-37.0); MEAN PLATELET VOLUME 10.4 fL (7.4-10.4); MONOCYTES 9.5 % (2-11); PLATELET COUNT 232 10x3/uL (130-400); RBC 3.74 10x6/uL (4.00-5.40); RDW 14.3 % (11.5-14.5); WBC 10.3 10x3/uL (4.8-10.8)
[2019-05-10 07:20] LABS: ALBUMIN 2.9 g/dL (3.4-5.0); ALKALINE PHOSPHATASE 93 U/L (46-116); ALT (SGPT) 71 U/L (10-68); BILIRUBIN - TOTAL 0.58 mg/dL (0.2-1.3); CALC OSMOLALITY 282 mosm/kg (275-300); CALCIUM 8.3 mg/dL (8.5-10.1); CARBON DIOXIDE 33.8 mmol/L (21.0-32.0); CHLORIDE - SERUM 101 mmol/L (98-107); CREATININE - SERUM 0.7 mg/dL (0.6-1.3); GLUCOSE 137 mg/dL (74-106); PROTEIN - SERUM 6.8 g/dL (6.4-8.2); SODIUM 141 mmol/L (136-145); UREA NITROGEN 12 mg/dL (7-18); eGFR NON AFRICAN AMERICAN 89 mL/min (90-120)
[2019-05-10 07:22] LABS: POTASSIUM - SERUM 3.2 mmol/L (3.5-5.1)
[2019-05-10 07:59] VITALS: BP 160/72
--- NOTE | 2019-05-10 08:17 | NUR ---
PATIENT RESTING IN BED WITH EYES CLOSED, NO DISTRESS, CL IN REACH
--- NOTE | 2019-05-10 09:14 | MORECARE ---
CASE MANAGEMENT DISCHARGE SUMMARY PATIENT: SARAY TRAORE HAILEY UNIT: [id number] ADM DATE: 05/05/19 AGE: 68 : 52 SEX: F ROOM/BED: D.2223 AUTHOR: SON,DOC PHYSICIAN: REFERRING PHYSICIAN: MARIE ROSADO DO DATE OF SERVICE: 05/10/19 Discharge Plan Patient Name: SARAY TRAORE Facility: [facility]:[place] : 1950 Planned Disposition: Home Anticipated Discharge Date: Discharge Date: Expected LOS: Initial Reviewer: [email or web address] Initial Review Date: 05/10/2019 Generated: 05/10/19 10:13 am Comments DCP- Discharge Planning Updated by [email or web address]: Babs Davis on 05/10/19 8:[address] Patient Name: SARAY TRAORE Admission Status: ER Accout number: [id number] Admission Date: 05-05-2019 : 1950 Admission Diagnosis: Attending: MARIE ROSADO Current LOS: 5 Anticipated DC Date: Planned Disposition: Home Primary Insurance: [employer] Discharge Planning Comments: CM met with patient to complete initial dc planning assessment. CM educated patient on the CM role and verbal consent given by patient to complete assessment. Patient lives at home alone. At discharge patient plans to return and feels this is a safe discharge. States her sister lives "10 houses away and will be staying with me vp [employer] when I go home." CM discussed availability of home health, rehab services, and medical equipment. Patient denied known discharge needs at this time. CM will continue to follow and will assist as needed with dc plans/needs. Director Recreation: Babs Davis DCPIA - Discharge Planning Initial Assessment Updated by [email or web address]: Babs Davis on 05/10/19 9:09 am * Is the patient Alert and Oriented? Yes * How many steps to enter\\exit or inside your home? 2/0 * PCP Dr. Malcolm * Pharmacy [facility] * Preadmission Environment Home Alone * ADLs Independent * Equipment Cane * Other Equipment States her brother in law has a walker that she can use * List name and contact numbers for known caregivers / representatives who currently or will assist patient after discharge: Cristal mendoza [phone] * Verbal permission to speak to the caregivers and representatives has been obtained from the patient. Yes * Community resources currently utilized None * Additional services required to return to the preadmission environment? No * Can the patient safely return to the preadmission environment? Yes * Has this patient been hospitalized within the prior 30 days at any hospital? No Patient Name: SARAY TRAORE Page [id number] at 0914 All edits/amendments must be made on the electronic document DICTATION DATE: 05/10/19912 FLAGGER: MAX 05/10/19912 RPT#: [id number] DC DATE: STATUS: ADM IN [facility] [address] [place] [address] END OF REPORT
[2019-05-10 11:37] VITALS: BP 158/78
--- NOTE | 2019-05-10 13:31 | NUR ---
PATIENT RESTING WITH EYES CLOSED, NO DISTRESS OR NEEDS VOICED. EDUCATED PATIENT THAT LOSS PREVENTION AUDITOR IS DISCONTINUED AND THAT PO MEDS WILL BE USED FOR PAIN CONTROL ALONG WITH PATCH
--- NOTE | 2019-05-10 14:14 | NUR ---
THIS NURSE RECEIVED THIS PATIENT AT 1400. PATIENT SITTING UP ON THE SIDE OF THE BED. NORMAL SALINE IV RUNNING A 100CC/HR. LEFT HAND PERIPHERAL LINE. SON AT BEDSIDE. DISCHARGE ORDERS WRITTEN
--- NOTE | 2019-05-10 14:32 | NUR ---
THIS NURSE RECEIVED THIS PATIENT AT 1400. PATIENT IS RESTING IN BED. ALERT/ORIENT. CALL LIGHT WITHIN REACH. VOICES NO NEEDS AT THIS TIME.
--- NOTE | 2019-05-10 16:38 | NUR ---
PRN PAIN MEDICATION GIVEN FOR LOWER BACK PAIN PER PATIENT REQUEST
[2019-05-10 17:01] VITALS: BP 166/87
[2019-05-10 20:00] VITALS: BP 191/93
--- NOTE | 2019-05-10 20:00 | NUR ---
ASSESSMENT PER FLOWSHEET. O2 OFF PT ON ROOM AIR NO DISTRESS. IV SALINE LOCK PATENT TO RT FOREARM. SR UP X2 CALL LIGHT WITHIN REACH. REQUESTING MORE PAIN MEDS INFORMED OF NEXT TIME DUE MED ORDERED Q6HRS.PT DOES HAVE A DURAGESIC PAIN PATCH ON. TELM. SHOWS SR WITH HR 83.
--- NOTE | 2019-05-10 22:30 | NUR ---
C/O PAIN BACK NORCO 10 TAB ONE PO GIVEN FOR PAIN CONTROL. DUWL=345 NO COVERAGE NEEDED
[2019-05-11 04:00] VITALS: BP 176/103
--- NOTE | 2019-05-11 05:46 | NUR ---
C/O BACK PAIN PERCOCET TAB ONE PO GIVEN FOR PAIN. EOKF=489. NO COVERAGE
[2019-05-11 06:07] LABS: BASOPHILS 0.5 % (0-2); EOSINOPHILS 3.2 % (0-7); HEMATOCRIT 39.1 % (36.0-48.0); HEMOGLOBIN 12.7 g/dL (12-16); IMMATURE GRANULOCYTES 0.9 % (0-5); LYMPHOCYTES 18.1 % (15-50); MCH 29.8 pg (26.0-34.0); MCHC 32.5 g/dL (31.0-37.0); MCV 91.8 fL (80.0-100.0); MEAN PLATELET VOLUME 10.2 fL (7.4-10.4); MONOCYTES 9.6 % (2-11); NEUTROPHILS 67.7 % (40-80); RBC 4.26 10x6/uL (4.00-5.40); RDW 14.1 % (11.5-14.5); WBC 10.5 10x3/uL (4.8-10.8)
[2019-05-11 06:12] LABS: PLATELET COUNT 297 10x3/uL (130-400)
[2019-05-11 06:36] LABS: ALBUMIN 3.2 g/dL (3.4-5.0); ALKALINE PHOSPHATASE 105 U/L (46-116); ALT (SGPT) 66 U/L (10-68); BILIRUBIN - TOTAL 0.54 mg/dL (0.2-1.3); CALC OSMOLALITY 280 mosm/kg (275-300); CALCIUM 8.5 mg/dL (8.5-10.1); CARBON DIOXIDE 33.2 mmol/L (21.0-32.0); CHLORIDE - SERUM 99 mmol/L (98-107); CREATININE - SERUM 0.8 mg/dL (0.6-1.3); GLUCOSE 115 mg/dL (74-106); POTASSIUM - SERUM 3.9 mmol/L (3.5-5.1); SODIUM 141 mmol/L (136-145); UREA NITROGEN 11 mg/dL (7-18); eGFR NON AFRICAN AMERICAN 76 mL/min (90-120)
--- NOTE | 2019-05-11 07:21 | NUR ---
ALERT AND ORIENTED. LUNGS CLEAR BILATERALLY. HEART SOUNDS S1 AND S2 HEARD IN ALL MONTIEL. BOWEL SOUNDS ACTIVE X 4. SKIN INTACT WITHOUT REDNESS. IV TO RFA PATENT WITHOUT REDNESS. TELEMETRY IN PLACE. DENIES NEEDS. BED LOW. CALL MCNEAL AND PERSONAL ITEMS IN REACH. WILL CONTINUE TO MONITOR.
--- NOTE | 2019-05-11 08:45 | NUR ---
PATIENT'S FENTANYL PATCH FOUND ON SIDE OF BED. REQUESTING NEW PATCH. DUNIA SPRAGUE IN ROOM WELL NURSE ELECTROCARDIOGRAPH TECHNICIAN KAYLEIGH DO GIVE 1615 PATCH NOW TO REPLACE OLD PATCH AND LEAVE NOTE. OLD PATCH REPLACED.
[2019-05-11 09:23] VITALS: BP 169/82
--- NOTE | 2019-05-11 09:44 | NUR ---
RESTING IN BED. DENIES NEEDS. WILL CONTINUE TO MONITOR.
--- NOTE | 2019-05-11 12:22 | NUR ---
PATIENT SLEEPING. WILL CONTINUE TO MONITOR.
[2019-05-11 12:27] VITALS: Ht 162.6 cm; Wt 99.8 kg
[2019-05-11 13:08] VITALS: BP 141/71
--- NOTE | 2019-05-11 15:40 | NUR ---
PATIENT SLEEPING. WILL CONTINUE TO MONITOR.
[2019-05-11 17:42] VITALS: BP 144/73
--- NOTE | 2019-05-11 17:48 | NUR ---
RESTING IN BED. DENIES NEEDS. WILL CONTINUE TO MONITOR.
[2019-05-11 20:00] VITALS: BP 135/73
--- NOTE | 2019-05-11 21:10 | NUR ---
PT AMBULATING AROUND NURSES STATION WITH WALKER. C/O PAIN 02/11. GAVE 1 TAB PERCOCET-10 AND SCHEDULED MEDS. COMPLETE ASSESSMENT PER FLOW-SHEET. NO OTHER NEEDS. WILL REASSESS AND CONTINUE TO MONITOR.
[2019-05-12] VITALS: BP 154/77
[2019-05-12 04:00] VITALS: BP 148/81
[2019-05-12 06:33] LABS: BASOPHILS 0.5 % (0-2); EOSINOPHILS 3.3 % (0-7); HEMATOCRIT 38.6 % (36.0-48.0); HEMOGLOBIN 12.8 g/dL (12-16); IMMATURE GRANULOCYTES 1.2 % (0-5); MCH 30.2 pg (26.0-34.0); MCHC 33.2 g/dL (31.0-37.0); MEAN PLATELET VOLUME 9.8 fL (7.4-10.4); MONOCYTES 10.1 % (2-11); NEUTROPHILS 61.9 % (40-80); PLATELET COUNT 291 10x3/uL (130-400); RBC 4.24 10x6/uL (4.00-5.40); RDW 14.2 % (11.5-14.5); WBC 11.1 10x3/uL (4.8-10.8)
[2019-05-12 06:38] LABS: CARBON DIOXIDE 32.1 mmol/L (21.0-32.0); CHLORIDE - SERUM 99 mmol/L (98-107); CREATININE - SERUM 0.8 mg/dL (0.6-1.3); GLUCOSE 121 mg/dL (74-106); SODIUM 137 mmol/L (136-145); eGFR NON AFRICAN AMERICAN 76 mL/min (90-120)
[2019-05-12 06:39] LABS: CALC OSMOLALITY 275 mosm/kg (275-300); POTASSIUM - SERUM 3.3 mmol/L (3.5-5.1); UREA NITROGEN 16 mg/dL (7-18)
--- NOTE | 2019-05-12 07:17 | MORECARE ---
CASE MANAGEMENT DISCHARGE SUMMARY PATIENT: SARAY TRAORE HAILEY UNIT: [id number] ADM DATE: 05/05/19 AGE: 68 : 52 SEX: F ROOM/BED: D.2223 AUTHOR: SON,DOC PHYSICIAN: REFERRING PHYSICIAN: MARIE ROSADO DO DATE OF SERVICE: 05/12/19 Discharge Plan Patient Name: SARAY TRAORE Facility: [facility]:[place] : 1950 Planned Disposition: Home Anticipated Discharge Date: Discharge Date: Expected LOS: Initial Reviewer: [email or web address] Initial Review Date: 05/10/2019 Generated: 05/12/19 8:16 am Comments DCP- Discharge Planning Updated by [id number]: Babs Susan on 05/12/19 6:[address] OXYGEN SATURATION DURING EXERTION WAS 90-94% ON ROOM AIR. SHE STATES SHE IS UNABLE TO MACIAS PAY FOR OXYGEN. SHE DOES NOT QUALIFY FOR HOME OXYGEN PER INSURANCE, SHE HAS NO CHRONIC DIAGNOSIS AND HER OXYGEN LEVEL IS ABOVE 88% ON ROOM AIR. DCP- Discharge Planning Updated by [id number]: Babs Davis on 05/10/19 8:[address] Patient Name: SARAY TRAORE Admission Status: ER Accout number: [id number] Admission Date: 05-05-2019 : 1950 Admission Diagnosis: Attending: MARIE ROSADO Current LOS: 5 Anticipated DC Date: Planned Disposition: Home Primary Insurance: [employer] Discharge Planning Comments: CM met with patient to complete initial dc planning assessment. CM educated patient on the CM role and verbal consent given by patient to complete assessment. Patient lives at home alone. At discharge patient plans to return and feels this is a safe discharge. States her sister lives "10 houses away and will be staying with me parts runner when I go home." CM discussed availability of home health, rehab services, and medical equipment. Patient denied known discharge needs at this time. CM will continue to follow and will assist as needed with dc plans/needs. Net Web Developer: Babs Davis DCPIA - Discharge Planning Initial Assessment Updated by [email or web address]: Babs Davis on 05/10/19 9:09 am * Is the patient Alert and Oriented? Yes * How many steps to enter\\exit or inside your home? 2/0 * PCP Dr. Malcolm * Pharmacy [facility] * Preadmission Environment Home Alone * ADLs Independent * Equipment Cane * Other Equipment States her brother in law has a walker that she can use * List name and contact numbers for known caregivers / representatives who currently or will assist patient after discharge: Cristal Upton - [facility] [phone] * Verbal permission to speak to the caregivers and representatives has been obtained from the patient. Yes * Community resources currently utilized None * Additional services required to return to the preadmission environment? No * Can the patient safely return to the preadmission environment? Yes * Has this patient been hospitalized within the prior 30 days at any hospital? No Last DP export: 05/10/19 8:14 a Patient Name: SARAY TRAORE Page [phone] at 0717 All edits/amendments must be made on the electronic document DICTATION DATE: 05/12/19715 MASTER COASTAL WATERS: MAX 05/12/19715 RPT#: [id number] DC DATE: STATUS: ADM IN [facility] [address] [place] [address] END OF REPORT
--- NOTE | 2019-05-12 07:20 | NUR ---
LYING IN BED,WITHOUT NEEDS.CALL LIGHT IN REACH.
[2019-05-12 08:06] VITALS: BP 138/52
--- NOTE | 2019-05-12 09:34 | NUR ---
HAS BEEN UP TO SHOWER THIS AM.WILL GIVE AM MEDS NOW.
[2019-05-12 12:44] VITALS: BP 142/74
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
[2019-05-12] MEDS ORDERED: ALBUTEROL SULF8.5 GM INH (14:48)
--- NOTE | 2019-05-12 16:07 | MORECARE ---
CASE MANAGEMENT DISCHARGE SUMMARY PATIENT: SARAY TRAORE HAILEY UNIT: [id number] ADM DATE: 05/05/19 AGE: 68 : 52 SEX: F ROOM/BED: D.2223 AUTHOR: ARTURO CLINE PHYSICIAN: REFERRING PHYSICIAN: MARIE ROSADO DO DATE OF SERVICE: 05/12/19 Discharge Plan Patient Name: SARAY TRAORE Facility: [facility]:[place] : 1950 Planned Disposition: Home Anticipated Discharge Date: Discharge Date: Expected LOS: Initial Reviewer: [email or web address] Initial Review Date: 05/10/2019 Generated: 05/12/19 5:06 pm Comments DCP- Discharge Planning Updated by [id number]: Babs Davis on 05/12/19 2:[address] Patient Name: SARAY TRAORE Encounter No: [id number] : 1950 Primary Insurance: [email or web address] Anticipated DC Date: Planned Disposition: Home External Planned Provider: : DCP follow-up note: Patient in agreement with discharge plan. Patient refuses home health. She states her sister is going to be staying with her. She states she has a walker at home and does not need any DME. States her sister will pick her up for discharge. No changes to plan. Case management will follow and assist as needed. Babs Davis DCP- Discharge Planning Updated by [email or web address]: Babs Dvais on 05/12/19 6:[address] OXYGEN SATURATION DURING EXERTION WAS 90-94% ON ROOM AIR. SHE STATES SHE IS UNABLE TO MACIAS PAY FOR OXYGEN. SHE DOES NOT QUALIFY FOR HOME OXYGEN PER INSURANCE, SHE HAS NO CHRONIC DIAGNOSIS AND HER OXYGEN LEVEL IS ABOVE 88% ON ROOM AIR. DCP- Discharge Planning Updated by [id number]: Babs Davis on 05/10/19 8:[address] Patient Name: SARAY TRAORE Admission Status: ER Accout number: [id number] Admission Date: 05-05-2019 : 1950 Admission Diagnosis: Attending: MARIE ROSADO Current LOS: 5 Anticipated DC Date: Planned Disposition: Home Primary Insurance: [email or web address] Discharge Planning Comments: CM met with patient to complete initial dc planning assessment. CM educated patient on the CM role and verbal consent given by patient to complete assessment. Patient lives at home alone. At discharge patient plans to return and feels this is a safe discharge. States her sister lives "10 houses away and will be staying with me partner management consultant when I go home." CM discussed availability of home health, rehab services, and medical equipment. Patient denied known discharge needs at this time. CM will continue to follow and will assist as needed with dc plans/needs. Superintendent Horticulture: Babs Bansalcarlota DCPIA - Discharge Planning Initial Assessment Updated by [email or web address]: Babs Susan on 05/10/19 9:09 am * Is the patient Alert and Oriented? Yes * How many steps to enter\\exit or inside your home? 2/0 * PCP Dr. Malcolm * Pharmacy [facility] * Preadmission Environment Home Alone * ADLs Independent * Equipment Cane * Other Equipment States her brother in law has a walker that she can use * List name and contact numbers for known caregivers / representatives who currently or will assist patient after discharge: Cristal Upton [facility] [phone] * Verbal permission to speak to the caregivers and representatives has been obtained from the patient. Yes * Community resources currently utilized None * Additional services required to return to the preadmission environment? No * Can the patient safely return to the preadmission environment? Yes * Has this patient been hospitalized within the prior 30 days at any hospital? No Coverage Notice Reviewer: [email or web address] - Babs Bansalcarlota Notice Issued Date-Time: 05/12/2019 15:57 Notice Type: IM Discharge Notice Notice Delivered To: Patient Relationship to Patient: Self Residential Finish Carpenter Name: Delivery Method: HAND - Hand Delivered Mone Days: Prior Verbal Notification: Recipient Understood Notice: Yes Recipient Signature: Yes Med Rec Note Co-signed by Attending: Coverage Notice Comment: IMM explained, signed, given, copy placed in MR Last DP export: 05/12/19 6:17 a Patient Name: SARAY TRAORE Page 43465 at 1607 All edits/amendments must be made on the electronic document DICTATION DATE: 05/12/191605 GIS SOFTWARE DEVELOPER: MAX 05/12/191605 RPT#: [id number] DC DATE: STATUS: ADM IN [facility] [address] [place] [address] END OF REPORT
[2019-05-12 16:44] VITALS: BP 131/64
[2019-05-12] MEDS ORDERED: PERCOCET 5-3251 TAB PO (17:24)
--- NOTE | 2019-05-12 18:31 | NUR ---
iv dcd with cath tip intact.discharge instructions,states understanding. pt is waiting on ride. she states it will be an hour or so.
--- NOTE | 2019-05-12 19:14 | NUR ---
RIDE HERE FOR TRANSPORT HOME.LEFT UNIT VIA WHEELCHAIR.
--- NOTE | 2019-05-13 15:48 | MORECARE ---
CASE MANAGEMENT DISCHARGE SUMMARY PATIENT: SARAY TRAORE HAILEY UNIT: [id number] ADM DATE: 05/05/19 AGE: 68 : 54 SEX: F ROOM/BED: D.2223 AUTHOR: ARTURO CLINE PHYSICIAN: REFERRING PHYSICIAN: MARIE ROSADO DO DATE OF SERVICE: 05/13/19 Discharge Plan Patient Name: SARAY TRAORE Facility: [facility]:[place] : 1950 Planned Disposition: Home Anticipated Discharge Date: Discharge Date: 05/12/2019 Expected LOS: Initial Reviewer: [email or web address] Initial Review Date: 05/10/2019 Generated: 05/13/19 4:47 pm Comments DCP- Discharge Planning Updated by [email or web address]: Babs Davis on 05/12/19 2:[address] Patient Name: SARAY TRAORE Encounter No: [id number] : 1950 Primary Insurance: [employer] Anticipated DC Date: Planned Disposition: Home External Planned Provider: : DCP follow-up note: Patient in agreement with discharge plan. Patient refuses home health. She states her sister is going to be staying with her. She states she has a walker at home and does not need any DME. States her sister will pick her up for discharge. No changes to plan. Case management will follow and assist as needed. Babs Davis DCP- Discharge Planning Updated by [id number]: Babs Davis on 05/12/19 6:[address] OXYGEN SATURATION DURING EXERTION WAS 90-94% ON ROOM AIR. SHE STATES SHE IS UNABLE TO MACIAS PAY FOR OXYGEN. SHE DOES NOT QUALIFY FOR HOME OXYGEN PER INSURANCE, SHE HAS NO CHRONIC DIAGNOSIS AND HER OXYGEN LEVEL IS ABOVE 88% ON ROOM AIR. DCP- Discharge Planning Updated by [email or web address]: Babs Davis on 05/10/19 8:[address] Patient Name: SARAY TRAORE Admission Status: ER Accout number: [id number] Admission Date: 05-05-2019 : 1950 Admission Diagnosis: Attending: MARIE ROSADO Current LOS: 5 Anticipated DC Date: Planned Disposition: Home Primary Insurance: [employer] Discharge Planning Comments: CM met with patient to complete initial dc planning assessment. CM educated patient on the CM role and verbal consent given by patient to complete assessment. Patient lives at home alone. At discharge patient plans to return and feels this is a safe discharge. States her sister lives "10 houses away and will be staying with me registered phlebotomist part time when I go home." CM discussed availability of home health, rehab services, and medical equipment. Patient denied known discharge needs at this time. CM will continue to follow and will assist as needed with dc plans/needs. Accounting Manager Cpa: Babs Davis DCPIA - Discharge Planning Initial Assessment Updated by [id number]: Babs Davis on 05/10/19 9:09 am * Is the patient Alert and Oriented? Yes * How many steps to enter\\exit or inside your home? 2/0 * PCP Dr. Malcolm * [facility] * Preadmission Environment Home Alone * ADLs Independent * Equipment Cane * Other Equipment States her brother in law has a walker that she can use * List name and contact numbers for known caregivers / representatives who currently or will assist patient after discharge: Cristal Upton [facility] [phone] * Verbal permission to speak to the caregivers and representatives has been obtained from the patient. Yes * Community resources currently utilized None * Additional services required to return to the preadmission environment? No * Can the patient safely return to the preadmission environment? Yes * Has this patient been hospitalized within the prior 30 days at any hospital? No Coverage Notice Reviewer: [id number] - Babs Davis Notice Issued Date-Time: 05/12/2019 15:57 Notice Type: IM Discharge Notice Notice Delivered To: Patient Relationship to Patient: Self Community Health Nurse Name: Delivery Method: HAND - Hand Delivered Mone Days: Prior Verbal Notification: Recipient Understood Notice: Yes Recipient Signature: Yes Med Rec Note Co-signed by Attending: Coverage Notice Comment: IMM explained, signed, given, copy placed in MR Last DP export: 05/12/19 3:07 p Patient Name: SARAY TRAORE Page 45538 at 1548 All edits/amendments must be made on the electronic document DICTATION DATE: 05/13/191546 APPAREL DESIGNER: MAX 05/13/191546 RPT#: [id number] DC DATE:05/12/19 STATUS: DIS IN [facility] [address] [facility] [address] END OF REPORT
== END 2019-05-12 19:15 | disposition home or self-care (01) | DRG 551 ==
LOC: D.ER 13:46 → D.MS 17:12
PROVIDERS: Family Medicine; Internal Medicine Nephrology; ADMIT Family Medicine; ATTEND Family Medicine
DX: S32.058A Other fracture of fifth lumbar vertebra, initial encounter for closed fracture (principal); J96.01 Acute respiratory failure with hypoxia; J81.1 Chronic pulmonary edema; V89.2XXA Person injured in unspecified motor-vehicle accident, traffic, initial encounter; Y92.410 Unspecified street and highway as the place of occurrence of the external cause; M48.061 Spinal stenosis, lumbar region without neurogenic claudication; H26.9 Unspecified cataract; E11.65 Type 2 diabetes mellitus with hyperglycemia; E03.9 Hypothyroidism, unspecified; I10 Essential (primary) hypertension; M19.90 Unspecified osteoarthritis, unspecified site; F41.9 Anxiety disorder, unspecified; Z85.828 Personal history of other malignant neoplasm of skin; E87.6 Hypokalemia; M24.074 Loose body in right toe joint(s)

== ENCOUNTER → 2020-12-11 08:56 | Outpatient (CLI) | payer MEDICARE ==
[2019-05-11 12:27] VITALS: BMI 37.7
[~2020-12-11 08:56] MED LIST changes: +ALBUTEROL SULF8.5 GM INH; +ALEVE220 MG PO; +CRESTOR20 MG PO; +PERCOCET 5-3251 TAB PO
--- NOTE | 2020-12-13 09:25 | EC ---
PATIENT:SARAY TRAORE DATE OF SERVICE: 12/11/20 SEX: F MEDICAL RECORD: [id number] DATE OF : [birth year] [facility] AGE OF PATIENT: 70 ADMISSION DATE: 12/11/20 REFERRING PHYSICIAN: INTERPRETING PHYSICIAN: WOLFGANG WYLIE MD ECHOCARDIOGRAM REPORT ECHO CHARGES 4 ECHO COMPLETE Date: 12/11/20 CLINICAL DIAGNOSIS: PALPITATIONS/HEART MURMUR/ANGINA ECHOCARDIOGRAPHIC MEASUREMENTS (adult normal given) AC root (d.<3.7cm) 3.5 cm LV Septum d (<1.2 cm> 1.4 cm Valve Excursion 1.6 cm LV Septum (systole) 1.7 cm Left Atria (s.<4.0cm> 4.2 cm LVPW d(<1.2cm) 1.6 cm RV (d.<2.3cm) 3.8 cm LVPW (sytole) 1.9 cm LV diastole(<5.6CM) 4.3 cm MV E-F(>70mm/sec) cm LV systole 2.7 cm LVOT Diameter 1.5 cm MV exc.(>10mm) 2.0 cm Est.ejection fraction (50-75%) % DOPPLER: LVIT cm/sec A 71.0 cm/sec E 59.0 cm/sec LA cm/sec RVSP 31 mmHg LVOT 97 cm/sec AOP1/2T m/s Asc. Ao 165 cm/sec RVOT 88 cm/sec RA cm/sec PA 135 cm/sec AV Gradient Peak 10.91mmHg AV Mean 6.06 mmHg AV Area 1.8 cm MV Gradient Peak 3.51 mmHg MV Mean 1.56 mmHg MV Area cm COMMENTS: Education Reviewer: 2 GERARDO SWANN Lacquer Mixer: 3 Dr. Nguyen TAPE# PACS Pericardial Effusion N DATE OF SERVICE: Adequate 2D, color flow imaging, spectral Doppler, and M-Mode. FINDINGS: Mild LVH. LV internal dimensions are normal. Wall motion is normal. EF is greater than or equal to 55%. Aortic valve is tricuspid. No evidence of stenosis by Doppler interrogation. Left atrium is mildly dilated at 4.2 cm. Mitral valve shows no prolapse. Trace MR. Right side is grossly normal. Mild TR. ECHOCARDIOGRAM REPORT [id number] SARAY TRAORE AHILEY TRANSINT:[id number] Voice Confirmation ID: [id number] DOCUMENT ID: [id number] WOLFGANG WYLIE MD at 0925 CC: [id number] DICTATION DATE: 12/12/201714 SKULL GRINDER: 12/12/20 1829 DEP CLI 12/11/20 [place] [id number] [place] [id number]
== END | disposition home or self-care (01) ==
LOC: D.HCCARDIO 08:56 → D.HCCECHO 10:00
PROVIDERS: ATTEND Internal Medicine Cardiovascular Disease
DX: I20.9 Angina pectoris, unspecified (principal)

== ENCOUNTER 2021-01-02 11:26 | Day surgery (SDC) | payer MEDICARE ==
[~2021-01-02] VITALS: Ht 162.6 cm; Wt 93.6 kg
--- NOTE | ~2021-01-02 | HEMODYNAMI ---
PATIENT:SARAY TRAORE MEDICAL RECORD: [id number] : 54 LOCATION:[facility] ADMISSION DATE: 01/02/21 Generatedon:114:37 Patient name: SARAY TRAORE Patient #: [id number] SSN: DO B: 1950 Date of study: 01/02/2021 Page: Of Hemodynamic Procedure Report Patient Data Patient Demographics Procedure consent was obtained First Name: SARAY Gender: Female Last Name: LEÓN : 1950 [facility] Initial: HAILEY Age: 70 year(s) Patient #: [id number] Race: Unknown Additional ID: [id number] Contact details [address]: [address] [place] [address] State: [place] City: [place] Zip code: [address] Admission Admission Data Admission Date: 01/02/2021 Admission Time: 11:26 Procedure Procedure Types Cath Procedure Diagnostic Procedure LHC LHC w/Coronaries Sedation Charges Moderate Sedation 10-24 minutes Procedure Description Procedure Date Procedure Date: 01/02/2021 Procedure Start Time: 14:20 Procedure End Time: 14:33 Procedure Staff Name Function Asif Grimm MD Performing Physician Nj Caballero RT Monitor Nisha Jeffers RT Scrub Natanael Erickson RN Nurse Procedure Data Cath Procedure Fluoroscopy Diagnostic fluoroscopy Total fluoroscopy Time: 1.5 time: 1.5 min min Diagnostic fluoroscopy Total fluoroscopy dose: 497 dose: 497 mGy mGy Contrast Material Contrast Material Type Amount (ml) Isovue 300 68 Entry Location Entry Primary Successful Side Size Upsize Upsize Entry Closure Succes sful Closure Location (Fr) 1 (Fr) 2 (Fr) Remarks Device Remarks Femoral Right 5 Fr Exoseal artery Estimated blood loss: 5 ml Diagnostic catheters Device Type Used For End Catheter Placement MULTIPACK JL 4.0 5Fr Left Coronary catheter Angiography MULTIPACK 3DRC 5Fr Right Coronary catheter Angiography MULTIPACK Pigtail 5 Fr LV Angiography catheter Procedure Complications No complications Procedure Medications Medication Administration Route Dosage Oxygen etCO2 Nasal cannula 2 l/min Lidocaine 2% added to field 20 Heparin Flush Bag added to field 2 bags (1000units/500ml NS) 0.9% NaCl I.V. 100 ml/hr Versed I.V. 1.5 mg Fentanyl I.V. 50 mcg 0.9% NaCl I.V. bolus 250 ml Versed I.V. 1 mg Fentanyl I.V. 50 mcg Hemodynamics Rest Heart Rate: 71 (bpm) Pressure Samples Time Site Value (mmHg) Purpose Heart Use Rate(bpm) 14:27 LV 57/8,-4 Snapshot 59 14:27 LV 103/9,16 Snapshot 59 Gradients Valve Time Site Site Mean SEP/DFP Peak To Heart Use 1 2 (mmHg) (sec/min) Peak Rate (mmHg) (bpm) Aortic 14:28 LV AO 58 Snapshots Pre Cath Intra NCS Post Cath Vital Signs Time Heart Resp SPO2 etCO2 NIBP (mmHg) Rhythm Pain Sedation Rate (ipm) (%) (mmHg) Status Level (bpm) 14:12:07 58 17 92 1.4 118/81(107) NSR 0 (11) 10(A) , No pain 14:16:25 54 15 97 8.9 123/73(96) NSR 0 (11) 10(A) , No pain 14:20:50 55 19 98 35.9 87/38(70) NSR 0 (11) 10(A) , No pain 14:25:49 61 19 95 36.6 113/67(86) NSR 0 (11) 9(A) , No pain 14:30:07 56 25 96 38.9 124/66(93) NSR 0 (11) 10(A) , No pain Medications Time Medication Route Dose Verified Delivered Reason Notes Ef fectiveness by by 14:11:24 Oxygen etCO2 2 Asif Santoyo used for Nasal l/min [facility] Francisco Erickson RN procedure cannula 14:11:32 Lidocaine 2% added 20ml Asif Gold for local to vial [facility] anesthetic field MD PINON 14:11:39 Heparin Flush added 2 Asif Gold used for Bag to bags [facility] procedure (1000units/500ml field MD PINON NS) 14:12:08 0.9% NaCl I.V. 100 Aisf Santoyo Per ml/hr St Francisco Erickson RN physician 14:19:38 Versed I.V. 1.5 Asif [address] mg [facility] Francisco Erickson RN sedation 14:19:44 Fentanyl I.V. 50 Asif Sant[address] for mcg [facility] Francisco Erickson RN sedation 14:21:35 0.9% NaCl I.V. 250 Asif Santoyo For bolus ml [facility] Francisco Erickson RN hypotension 14:26:13 Versed I.V. 1 mg Asif Santoyo for [facility] Francisco Erickson RN sedation 14:26:16 Fentanyl I.V. [address] Sant[address] for mcg [address] Francisco Erickson RN sedation Procedure Log Time Note 13:47:26 Informed consent obtained and on chart 13:47:50 Procedure Status Elective Heart Cath (OP). 13:47:51 Time tracking: Regular hours (M-F 7:00 - 5:00) 13:47:56 Plan of Care:Hemodynamics will remain stable., Cardiac rhythm will remain stable., Comfort level will be maintained., Respiratory function will remain adequate., Patient/ family verbilizes understanding of procedure., Procedure tolerated without complication., Recovers from procedure without complications.. 13:47:58 Natanael Erickson RN sent for patient. Start room use. 14:10:50 Patient received from Pre/Post Procedure Room to CCL 1 Alert and oriented. Tansferred to table in Supine position. 14:10:53 Warm blankets applied, and divina hugger turned on for patient comfort. 14:10:53 Correct patient and procedure confirmed by team. 14:10:53 ECG and BP/O2 sat monitors applied to patient. 14:10:54 Vital chart was started 14:10:55 Baseline sample Acquired. 14:11:01 Baseline sample Acquired. 14:11:05 Rhythm: sinus rhythm 14:11:06 Full Disclosure recording started 14:11:13 H&P Date Dictated: 01/02/2021 H&P Addendum completed by physician on day of procedure. (MUST COMPLETE FOR ALL OUTPATIENTS). 14:11:14 Pre-procedure instructions explained to patient. 14:11:14 Pre-op teaching completed and patient verbalized understanding. 14:11:18 Family unavailable. 14:11:20 Patient NPO since Midnight. 14:11:24 Oxygen 2 l/min etCO2 Nasal cannula was administered by Natanael Erickson RN; used for procedure; Verbal order read back and verified. 14:11:27 Is the patient allergic to Iodine/contrast media? No. 14:11:32 Lidocaine 2% 20ml vial added to field was administered by Asif Grimm MD; for local anesthetic; Verbal order read back and verified. 14:11:34 Is patient on blood thinner?No 14:11:38 Patient diabetic? Yes. 14:11:39 Heparin Flush Bag (1000units/500ml NS) 2 bags added to field was administered by Asif Grimm MD; used for procedure; Verbal order read back and verified. 14:11:40 If diabetic: On Metformin? No 14:11:41 ----Pre-sedation anethsthesia assessment.---- 14:12:01 Previous problem with sedation/anesthesia? No ? 14:12:08 0.9% NaCl 100 ml/hr I.V. was administered by Natanael Erickson RN; Per physician; Verbal order read back and verified. 14:13:20 Snore? No 14:13:21 Sleep apnea? No 14:13:23 Deviated septum? No 14:13:24 Opens mouth fully? Yes 14:13:25 Sticks out tongue? Yes 14:13:28 Airway obstruction? No ? 14:13:30 Dentures? No ? 14:13:34 Pre procedure: right femoral pulse 2+ Normal; easily identifiable; not easily obliterated 14:13:38 Patient pain scale 0/10 ?. 14:13:43 IV patent on arrival in left antecubital with 0.9% NaCl at [facility]. 14:13:55 Lab results completed and on chart. 14:19:16 Risk of Mortality: .1 14:19:20 Risk of blood transfusion: .4 14:19:24 Risk of DEBBY: .8 14:19:27 Right groin area was prepped with chlora-prep and draped in sterile fashion 14:19:28 Alarms reviewed by R. N. 14:19:29 Sharps counted by scrub and verified by R.N. 14:19:30 Physician arrived 14:19:30 --------ALL STOP TIME OUT------ 14:19:31 Final Timeout: patient, procedure, and site verified with staff and physician. All members of the team are in agreement. 14:19:32 Right groin site verified by team. 14:19:37 Fire Safety Assessment: A--An alcohol-based skin anteseptic being used preoperatively., C--Open oxygen or nitrous oxide is being used., D--An ESU, laser, or fiber-optic light is being used. 14:19:38 Versed 1.5 mg I.V. was administered by Natanael Erickson RN; for sedation; Verbal order read back and verified. 14:19:41 Physical assessment completed. ASA score P 2 - A patient with mild systemic disease as per Asif Grimm MD. 14:19:44 Fentanyl 50 mcg I.V. was administered by Natanael Erickson RN; for sedation; Verbal order read back and verified. 14:19:51 3a) 45-59 Moderately reduced kidney function. 14:19:54 Maximum allowable contrast dose (3.7 X eGFR X 0.75)161 ml. 14:19:58 Sedation plan: IV Moderate Sedation Medication:Versed, Fentanyl 14:20:19 Use device set Femoral Dx 14:20:20 ACIST Syringe (49826) opened to sterile field. 14:20:20 Bag Decanter (2002S) opened to sterile field. 14:20:20 Medline Cath Pack ([id number]) opened to sterile field. 14:20:22 ACIST Hand Control (07979) opened to sterile field. 14:20:22 ACIST Manifold (09429) opened to sterile field. 14:20:22 DIAGNOSTIC Multipack 5Fr catheter set (HT3246) opened to sterile field. 14:20:23 Tegaderm 4 x 4 (1626W) opened to sterile field. 14:20:27 SHEATH 5FR [place] (SRS086) opened to sterile field. 14:20:28 EMERALD Guide Wire (887-559) opened to sterile field. 14:20:33 Procedure started. 14:20:44 Local anesthetic to right femoral artery with Lidocaine 2% by Asif Grimm MD.INITIAL ACCESS ONLY 14:20:52 A 5 Fr sheath was inserted into the Right Femoral artery 14:20:56 Zero performed for pressure channel P1 14:21:01 A MULTIPACK JL 4.0 5Fr catheter was advanced over the wire and used for Left Coronary Angiography. 14:21:03 Zero performed for pressure channel P1 14:21:07 Zero performed for pressure channel P1 14:21:35 0.9% NaCl 250 ml I.V. bolus was administered by Buffie Erickson RN; For hypotension; Verbal order read back and verified. 14:21:57 LCA angiography performed. 14::37 Catheter removed. 14::43 A MULTIPACK 3DRC 5Fr catheter was advanced over the wire and used for Right Coronary Angiography. 14:23:50 RCA angiography performed. 14:25:25 Catheter exchanged over wire. 14:25:38 A MULTIPACK Pigtail 5 Fr catheter was advanced over the wire and used for LV Angiography. 14::46 LV gram done using VAZ 14::47 LV hemodynamics recorded. 14::50 Injector settings: Ml/sec: 10, Volume: 20, 14::13 Versed 1 mg I.V. was administered by Natanael Erickson RN; for sedation; Verbal order read back and verified. 14:26:16 Fentanyl 50 mcg I.V. was administered by Natanael Erickson RN; for sedation; Verbal order read back and verified. 14:28:06 Catheter removed. 14:28:15 Contrast amount:Isovue 300 68ml. 14:29:09 Sheath removed intact; hemostasis achieved with Exoseal to the Right Femoral artery. 14:29:44 Procedure ended.(Physican Out) 14:29:54 Fluoroscopy time 01.50 minutes. 14:30:54 Fluoroscopy dose: 497 mGy 14:30:54 Flurop Dose total: 497 14:31:03 Dose Area Product 05016 mGy/cm. 14:31:09 Maximum allowable dose exceeded? No. 14:31:10 Sharps counted by scrub and verified by R.N. 14:31:13 Insertion/operative site no bleeding no hematoma. 14:31:35 Post-op/insertion site Right Femoral artery dressed using a 4 x 4 and Tegaderm. 14:31:38 Post right femoral artery:stable 14::43 Post Procedure Pulses reassessed and unchanged 14:31:45 Post procedure: right dorsailis pedis pulse 1+ Palpable, but thready & weak; easily obliterated. 14:31:48 Post-procedure physical assessment completed. ASA score P 2 - A patient with mild systemic disease as per Asif Grimm MD. 14:31:56 Post procedure rhythm: unchanged. 14:32:00 Estimated blood loss: 5 ml 14:32:01 Post procedure instruction explained to patient.Patient verbalizes understanding. 14:32:05 EXOSEAL 5Fr (EX500) opened to sterile field. 14:32:22 Procedure and supply charges have been captured, reviewed, submitted and are correct. 14:32:42 Procedure type changed to Cath procedure, Diagnostic procedure, LHC, [facility] w/Coronaries, Sedation Charges, Moderate Sedation 10-24 minutes 14:33:08 Procedure Complication : No complications 14:33:10 Vital chart was stopped 14:33:13 [facility] Findings: MVD- MD will discuss options w/ pt 14:33:17 Operative report dictated upon procedure completion. 14:33:19 See physician's report for complete and final results. 14:33:20 Report given to Pre/Post Procedure Room. 14:33:23 Patient transfered to Pre/Post Procedure Room with Stretcher. 14:33:25 Procedure ended. 14:33:25 Full Disclosure recording stopped 14:33:28 End room use (Document Last) 14:35:41 End room use (Document Last) Device Usage Item Name Manufacture Quantity Catalog Hospital Part Current Minimal L ot# / Number Charge Number Stock Stock Serial# Code ACIST Acist 1 90761 868100 894992 250200 20 Syringe Medical (01580) Systems Inc Bag Microtek 1 2001S 463003 40057 770603 5 Decanter Medical Inc. () Medline Medline 1 [id number] 502360 01146 748024 5 Cath Pack ([id number]) ACIST Hand Acist 1 67292 315047 739201 031192 5 Control Medical (88364) Systems Inc ACIST Acist 1 12207 749345 349153 447769 5 Manifold Medical (60929) Systems Inc DIAGNOSTIC Cardinal 1 [id number] 846688 22053 889286 30 Multipack Health 5Fr catheter set (KE7026) Tegaderm 4 3M 1 1626W 806106 081589 933361 5 x 4 (1626W) SHEATH 5FR Terumo 1 SCI025 821037 050078 003574 5 [place] (RMF253) EMERALD Cardinal 1 502-455 608095 364171 747864 5 Guide Wire Wireless Toyz (502-455) MULTIPACK Cardinal 1 651093 5 JL 4.0 5Fr Health catheter MULTIPACK Cardinal 1 574676 5 3DRC 5Fr Health catheter MULTIPACK Cardinal 1 101266 5 Pigtail 5 Health Fr catheter EXOSEAL 5Fr Cardinal 1 EX500 174121 350608 347578 10 (EX500) Health Signature Audit [place] Stage Time Signature Unsigned Intra-Procedure 01/02/2021 Nj Caballero RT(R) 2:34:01 PM Intra-Procedure 01/02/2021 Natanael Erickson RN 2:35:41 PM Intra-Procedure 01/02/2021 Asif Carrasco 2:37:56 PM Francisco [place] [id number] [place] [id number]
[2021-01-02] MEDS ORDERED: ZOLOFT50 MG PO (11:36)
[2021-01-02 11:48] VITALS: BP 139/72; Ht 162.6 cm; Wt 93.6 kg
[2021-01-02 12:01] LABS: BASOPHILS 1.5 % (0-2); EOSINOPHILS 3.1 % (0-7); HEMATOCRIT 42.7 % (36.0-48.0); HEMOGLOBIN 14.7 g/dL (12-16); LYMPHOCYTES 20.6 % (15-50); MCH 29.6 pg (26.0-34.0); MCHC 34.3 g/dL (31.0-37.0); MCV 86.1 fL (80.0-100.0); MEAN PLATELET VOLUME 8.1 fL (7.4-10.4); MONOCYTES 10.5 % (2-11); NEUTROPHILS 64.3 % (40-80); PLATELET COUNT 285 10x3/uL (130-400); RBC 4.96 10x6/uL (4.00-5.40); RDW 13.5 % (11.5-14.5); WBC 10.4 10x3/uL (4.8-10.8)
[2021-01-02 12:20] LABS: ANION GAP 14.9 mmol/L (8-16); CALCIUM 9.6 mg/dL (8.5-10.1); CARBON DIOXIDE 28.3 mmol/L (21.0-32.0); CHOL - HDL RATIO 4.4 ratio (2.3-4.1); LDL-HDL RATIO 2.1 ratio (1.5-3.5); POTASSIUM - SERUM 3.2 mmol/L (3.5-5.1)
--- NOTE | 2021-01-02 14:43 | NUR ---
PT ARRIVED BY STRETCHER. PLACED ON MONITORS. ASSESSMENT COMPLETED. VSS AT THIS TIME. CALL LIGHT WITHIN REACH.
--- NOTE | 2021-01-02 14:58 | NUR ---
PT RESTING COMFORTABLY. VSS AT THIS TIME. CALL LIGHT WITHIN REACH. VSS. RIGHT GROIN DRESSING C/D/I. NO S/S OF HEMATOMA NOTED. RIGHT PEDAL PULSE PALPABLE.
--- NOTE | 2021-01-02 15:30 | NUR ---
RIGHT GROIN DRESSING C/D/I. NO S/S OF HEMATOMA NOTED. CALL LIGHT WITHIN REACH. VSS AT THIS TIME. CALL LIGHT WITHIN REACH.
--- NOTE | 2021-01-02 15:40 | NUR ---
RIGHT GROIN DRESSING C/D/I. NO S/S OF HEMATOMA NOTED. VSS. HEAD OF BED INC TO 30 DEGREES. TOLERATED WELL. SET UP WITH SANDWICH TRAY AND DRINK. DENIES NAUSEA/PAIN. CALL LIGHT WITHIN REACH.
--- NOTE | 2021-01-02 16:27 | NUR ---
RIGHT GROIN DRESSING C/D/I. NO S/S OF HEMATOMA NOTED. PIV D/C'D WITH CATH TIP INTACT. TOLERATED WELL. DISCUSSED DISCHARGE INSTRUCTIONS WITH PT. SHE VOICED UNDERSTANDING. PT INSTRUCTED TO GET UP AND DRESSED. NO ASSISTANCE NEEDED. CALL LIGHT LEFT WITHIN REACH.
--- NOTE | 2021-01-02 16:35 | NUR ---
PT AMBULATED TO RESTROOM. VOIDED WITHOUT DIFFICULTY. STEADY GAIT NOTED. RIGHT GROIN DRESSING C/D/I. NO S/S OF HEMATOMA NOTED. PT TAKEN OUT TO VEHICLE BY WHEELCHAIR. NO S/S OF DISTRESS NOTED. ALL BELONGINGS AND PAPERWORK IN HAND.
--- NOTE | 2021-01-03 07:50 | HP ---
PATIENT: SARAY TRAORE MEDICAL RECORD: [id number] ACCOUNT: [id number] LOCATION:OPAL : 52 ADMISSION DATE: 01/02/21 PCP: BEE HARRIS DO HISTORY AND PHYSICAL EXAMINATION HISTORY OF PRESENT ILLNESS: A 70-year-old female with a no known history of coronary artery disease. She has a history of cardiac arrhythmias. She was seen in the office, has sinus pressure with exertion. Underwent Cardiolite stress testing, which showed reversible ischemia. Symptoms continued to despite medical therapy. She was brought to the track repair laborer for further evaluation. PAST MEDICAL HISTORY: Includes; 1. Hypertension. 2. Hyperlipidemia. 3. Cardiac arrhythmias. 4. Hypothyroidism, on replacement. ALLERGIES: None known. PHYSICAL EXAMINATION: GENERAL: Pleasant, in no acute distress, appears stated age. HEENT: Normocephalic, atraumatic. NECK: No JVD or bruit. HEART: Regular. LUNGS: Jeffers clear. ABDOMEN: Soft and nontender. EXTREMITIES: Pulses 2+. With no edema. IMPRESSION: Progressive angina. PLAN: For angiography and intervention based on above. TRANSINT:[id number] Voice Confirmation ID: [id number] DOCUMENT ID: [id number] WOLFGANG WYLIE MD at 0750 CC: [id number] DICTATION DATE: 01/02/21 140 DIRECT OF REAL ESTATE: 01/02/21 1647 [facility] 01/02/21 [place] [id number] [place] [id number]
--- NOTE | 2021-01-03 07:50 | OP ---
PATIENT NAME: SARAY TRAORE MEDICAL RECORD: [id number] :54 LOCATION:D.CAT ADMISSION DATE: SURGEON: WOLFGANG WYLIE MD DATE OF OPERATION: 01/02/2021 PROCEDURE: Left heart catheterization, selective coronary angiography, right femoral artery approach. CATHETERS: A 5-Samoan sheath, 5/4 left and right Collins, 5/4 pig. The procedure was well tolerated. The patient was returned to the trevizo. Sheath removed. ExoSeal device was placed. FINDINGS: Left ventriculography in 30-degree VAZ view: Normal wall motion, normal systolic function. CORONARY ANATOMY: Left main: Left main is free of disease. LAD: Free of disease in the diagonal system. Circumflex: Free of disease in the marginal system. Right coronary artery: Dominant artery, gives rise to PDA, free of disease. IMPRESSION: Normal left ventricular systolic function. Normal coronary anatomy. TRANSINT:[id number] Voice Confirmation ID: [id number] DOCUMENT ID: [id number] WOLFGANG WYLIE MD at 0750 CC: [id number] DICTATION DATE: 01/02/21 1434 [employer] [employer]IE[employer] TECHNICAL OFFICER: 01/02/[address] [facility] 01/02/21 [place] [address] [place] [address]
== END 2021-01-02 16:35 | disposition home or self-care (01) ==
LOC: D.CATH 11:26
PROVIDERS: ATTEND Internal Medicine Interventional Cardiology
DX: I20.9 Angina pectoris, unspecified (principal); I49.9 Cardiac arrhythmia, unspecified; I99.8 Other disorder of circulatory system; I10 Essential (primary) hypertension; E78.5 Hyperlipidemia, unspecified; E03.9 Hypothyroidism, unspecified; R94.39 Abnormal result of other cardiovascular function study